=== PATIENT | female | born 1975 | race Caucasian/White ===

== ENCOUNTER 2019-07-10 00:12 | Emergency (ER) | payer BC ==
--- NOTE | 2019-07-10 00:31 | ER Document Report ---
ED General - General Chief Complaint: Altered Mental Status Stated Complaint: BEHAVIORAL PROBLEM/ETOH Time Seen by Provider: 07/10/19 00:23 Notes: Patient is a 44-year-old female that comes the emergency department by EMS for chief complaint of bizarre behavior. Reportedly patient was pounding on neighbors door, smelled of alcohol, and was yelling nonsensical statements while appearing intoxicated. EMS also reported that it upon arrival and transport to the emergency department patient began swinging at EMS staff, biting at them, spitting at them. Patient as result was given 250 mg IM ketamine. EMS states that police on scene reported they were very familiar with the patient and that she is almost always intoxicated. Afterwards patient became extremely sedated, oxygen saturation dropped to 85% on room air, NPA was placed, patient has had normal respiratory effort and normal oxygenation since then but has remained sedated. Patient does not have any home medications listed. They also report surgical history of breast augmentation but no other surgical history. History was limited. TRAVEL OUTSIDE OF THE [place] IN LAST 30 DAYS: No - Related Data Allergies/Adverse Reactions: No Known Allergies Allergy (Verified 09/12/14 13:23) Past Medical History - General Information source: Emergency Med Personnel - Social History Smoking Status: Unknown if Ever Smoked Frequency of alcohol use: Heavy Lives with: Alone Family History: None Patient has suicidal ideation: No Patient has homicidal ideation: No Renal/ Medical History: Denies: Hx Peritoneal Dialysis Past Surgical History: Reports: Hx Breast Surgery - augmentation x 15years Review of Systems - Review of Systems Constitutional: See HPI EENT: No symptoms reported Cardiovascular: No symptoms reported Respiratory: See HPI Gastrointestinal: No symptoms reported Genitourinary: No symptoms reported Female Genitourinary: No symptoms reported Musculoskeletal: No symptoms reported Skin: No symptoms reported Hematologic/Lymphatic: No symptoms reported Neurological/Psychological: See HPI Physical Exam - Vital signs Vitals: Pulse Ox 98 07/10/19 00:14 - Notes Notes: GENERAL: Patient sedated, sleeping soundly HEAD: Normocephalic, atraumatic. EYES: Pupils equal, round, and reactive to light. Extraocular movements intact. ENT: Oral mucosa moist, tongue midline. Oropharynx unremarkable. Airway patent. NPA in place in the right nostril without bleeding. LUNGS: Clear to auscultation bilaterally, no wheezes, rales, or rhonchi. Respirations are repressed or labored no respiratory distress. No trauma noted to the chest wall. HEART: Regular rate and rhythm. No murmur ABDOMEN: Soft, non-tender. Non-distended. No signs of trauma. GENITOURINARY: No signs of trauma. PCT Chery at bedside assisting exam. EXTREMITIES: No signs of trauma. No edema, normal radial and dorsalis pedis pulses bilaterally. No cyanosis. BACK: no cervical, thoracic, lumbar midline tenderness. No signs of trauma. NEUROLOGICAL: Sedated with nystagmus noted. Incomplete exam because of this. SKIN: Warm, dry, normal turgor. No rashes or lesions noted. Course - Re-evaluation Re-evalutation: Recent medications including fluoxetine, alprazolam, and ADHD medications noted. Patient is unable to answer questions and is currently completely sedated with NPA. She has reactive pupils, no signs of trauma, clear lungs, she is not tachycardic, she is not hypoxic, she has good respiratory effort. Work-up pending, patient will be kept on cardiac monitoring and closely reevaluated. 07/10/19 01:25 Patient is much more arousable now, she pulled out her NPA, there is no bleeding, patient fell back asleep. 07/10/19 02:30 Patient is awake, mumbling, still drowsy, appears to still be under the effects of the ketamine and alcohol. Vital signs unremarkable, will continue to monitor. She has been given IV fluids. CBC, chemistry, urinalysis nonspecific. Alcohol greater than 200. Urine drug screen shows benzodiazepine, patient is prescribed alprazolam per her records. Patient is much more awake. She is asking where she is and what happened. I did explain this. Patient tried to get out of bed, she is unsteady on her feet, she still is slurring her words, patient was helped back into the bed. I did discuss details with patient. Patient was given Phenergan for nausea and to help her rest and sober up. Patient fell back asleep. She remains arousable and is maintaining her airway. Patient will be monitored until she is clinically sober and cooperative, then disposition will be based on this interaction. - Vital Signs Vital signs: Temp Pulse Resp BP Pulse Ox 98.3 F 90 13 97/62 L 100 07/10/19 13:40 07/10/19 03:21 07/10/19 13:01 07/10/19 13:37 07/10/19 13:37 - Laboratory Result Diagrams: 07/10/19 00:31 07/10/19 00:31 Laboratory results interpreted by me: 07/10/19 07/10/19 00:31 00:31 MCV 99 H MCH 34.4 H Eos % (Auto) 9.2 H Absolute Eos (auto) 0.8 H AST 37 H Salicylates < 1.0 L Acetaminophen < 10 L - EKG Interpretation by Me Additional EKG results interpreted by me: EKG shows sinus rhythm at a rate of 94, first-degree AV block with IL interval of 224, QTC of 456, normal axis, no T wave inversions or ST segment changes in consecutive leads. Discharge - Discharge Clinical Impression: Aggressive behavior Alcohol intoxication Qualifiers: Complication of substance-induced condition: with unspecified complication Qualified Code(s): F10.929 - Alcohol use, unspecified with intoxication, unspecified Condition: Stable Disposition: HOME, SELF-CARE Additional Instructions: Avoid drinking alcohol to intoxication. Follow-up with the detox center listed below. Return to the emergency department for any concerning developing symptoms or if something is not right. Forms: Return to Work
[2019-07-10 00:50] LABS: ABSOLUTE BASOPHILS # (AUTO) 0.1 10^3/uL (0.0-0.2); ABSOLUTE EOSINOPHILS # (AUTO) 0.8 10^3/uL (0.0-0.6); ABSOLUTE LYMPHOCYTES (AUTO) 2.7 10^3/uL (0.5-4.7); ABSOLUTE MONOCYTES (AUTO) 0.7 10^3/uL (0.1-1.4); ABSOLUTE NEUT (AUTO) 4.9 10^3/uL (1.7-8.2); BASOPHILS % (AUTO) 0.7 % (0-2); EOSINOPHILS % (AUTO) 9.2 % (0-6); HEMATOCRIT 42.5 % (36.0-47.0); HEMOGLOBIN 14.9 g/dL (12.0-15.5); LYMPHOCYTES % (AUTO) 29.2 % (13-45); MEAN CORPUSCULAR HEMOGLOBIN 34.4 pg (27.0-33.4); MEAN CORPUSCULAR VOLUME 99 fl (80-97); MONOCYTES % (AUTO) 7.8 % (3-13); PLATELET COUNT 318 10^3/uL (150-450); RED BLOOD COUNT 4.32 10^6/uL (3.72-5.28); RED CELL DISTRIBUTION WIDTH 12.7 % (11.5-14.0); SEGMENTED NEUTROPHILS % (AUTO) 53.1 % (42-78); TOTAL CELLS COUNTED % (AUTO) 100 %; WHITE BLOOD COUNT 9.2 10^3/uL (4.0-10.5)
[2019-07-10] MEDS ORDERED: NORMAL SALINE 1000 ML 1,000 ML IV ONE (00:52)
[2019-07-10 00:59] LABS: APPEARANCE,URINE CLEAR; BILIRUBIN,URINE NEGATIVE (NEGATIVE); COLOR,URINE COLORLESS; GLUCOSE, URINE NEGATIVE (NEGATIVE); KETONES,URINE NEGATIVE (NEGATIVE); LEUKOCYTE ESTERASE,URINE NEGATIVE (NEGATIVE); NITRITE,URINE NEGATIVE (NEGATIVE); PROTEIN,URINE NEGATIVE (NEGATIVE); URINE SPECIFIC GRAVITY 1.003; UROBILINOGEN,URINE NEGATIVE mg/dL (<2.0)
[2019-07-10 01:01] LABS: ALBUMIN 4.6 g/dL (3.5-5.0); ALCOHOL 225 mg/dL (NONE DETECTED); ALKALINE PHOSPHATASE 47 U/L (38-126); ANION GAP 5 (5-19); ASPARTATE AMINO TRANSFERASE 37 U/L (14-36); BILIRUBIN,TOTAL 0.4 mg/dL (0.2-1.3); BLOOD UREA NITROGEN 8 mg/dL (7-20); CARBON DIOXIDE 30 mmol/L (22-30); CHLORIDE 106 mmol/L (98-107); GLUCOSE 94 mg/dL (75-110); TOTAL PROTEIN 7.3 g/dL (6.3-8.2)
[2019-07-10 01:05] LABS: ACETAMINOPHEN < 10 ug/mL (10-30); SALICYLATE < 1.0 mg/dL (2.0-20.0)
[2019-07-10 01:10] LABS: URINE AMPHETAMINES SCREEN NEGATIVE; URINE BARBITURATES SCREEN NEGATIVE; URINE COCAINE SCREEN NEGATIVE; URINE MARIJUANA (THC) SCREEN NEGATIVE; URINE METHADONE SCREEN NEGATIVE; URINE PHENCYCLIDINE SCREEN NEGATIVE
[2019-07-10 01:11] LABS: URINE BENZODIAZEPINES SCREEN UNCONFIRMED POSITIVE
--- NOTE | 2019-07-10 01:34 | RADIOLOGY REPORT (SQ) ---
EXAM DESCRIPTION: XR CHEST 1 VIEW COMPLETED DATE/TME: 07/10/2019 00:29 CLINICAL HISTORY: 44 years, Female, hypoxia COMPARISON: None. NUMBER OF VIEWS: 1 TECHNIQUE: Portable chest LIMITATIONS: None. FINDINGS: The heart size is normal. Lungs are clear. No pneumothorax IMPRESSION: Negative chest copyright 2011 [employer]- All Rights Reserved
[2019-07-10] MEDS ORDERED: PROMETHAZINE HCL INJ 25 MG/1 ML VIAL IM ONE (03:19)
--- NOTE | 2019-07-10 07:13 | EKG REPORT ---
SEVERITY:- ABNORMAL ECG - SINUS RHYTHM FIRST DEGREE AV BLOCK : Confirmed by: Mitch Cardozo MD 10-Jul-2019 07:11:52
[2019-07-10 13:44] VITALS: BP 97/62
== END 2019-07-10 13:51 | disposition home or self-care (01) ==
LOC: ER 00:12
DX: F10.129 Alcohol abuse with intoxication, unspecified (principal); R45.6 Violent behavior; R11.0 Nausea; I44.0 Atrioventricular block, first degree
CPT/HCPCS: 93005; 99285; 96372; 96360; 36415; 80307 ×4; 84703; 85025; 80053; 81001; 71045; 93010; J2550; J7030

== ENCOUNTER 2019-07-24 13:08 | Emergency (ER) | payer BC ==
[2019-07-24 13:46] LABS: ABSOLUTE BASOPHILS # (AUTO) 0.1 10^3/uL (0.0-0.2); ABSOLUTE EOSINOPHILS # (AUTO) 0.2 10^3/uL (0.0-0.6); ABSOLUTE LYMPHOCYTES (AUTO) 1.6 10^3/uL (0.5-4.7); ABSOLUTE MONOCYTES (AUTO) 0.6 10^3/uL (0.1-1.4); ABSOLUTE NEUT (AUTO) 5.4 10^3/uL (1.7-8.2); BASOPHILS % (AUTO) 0.8 % (0-2); EOSINOPHILS % (AUTO) 2.2 % (0-6); HEMATOCRIT 42.2 % (36.0-47.0); HEMOGLOBIN 15.1 g/dL (12.0-15.5); LYMPHOCYTES % (AUTO) 20.7 % (13-45); MEAN CORPUSCULAR HEMOGLOBIN 34.7 pg (27.0-33.4); MEAN CORPUSCULAR HGB CONC 35.7 g/dL (32.0-36.0); MEAN CORPUSCULAR VOLUME 97 fl (80-97); MONOCYTES % (AUTO) 7.9 % (3-13); PLATELET COUNT 340 10^3/uL (150-450); RED BLOOD COUNT 4.34 10^6/uL (3.72-5.28); RED CELL DISTRIBUTION WIDTH 12.8 % (11.5-14.0); SEGMENTED NEUTROPHILS % (AUTO) 68.4 % (42-78); TOTAL CELLS COUNTED % (AUTO) 100 %
[2019-07-24 14:05] LABS: ALBUMIN 5.3 g/dL (3.5-5.0); ALKALINE PHOSPHATASE 66 U/L (38-126); ANION GAP 12 (5-19); ASPARTATE AMINO TRANSFERASE 44 U/L (14-36); BILIRUBIN,TOTAL 0.9 mg/dL (0.2-1.3); BLOOD UREA NITROGEN 18 mg/dL (7-20); CALCIUM 9.8 mg/dL (8.4-10.2); CARBON DIOXIDE 25 mmol/L (22-30); CHLORIDE 100 mmol/L (98-107); GLUCOSE 103 mg/dL (75-110); POTASSIUM 3.7 mmol/L (3.6-5.0)
[2019-07-24 14:10] LABS: ACETAMINOPHEN < 10 ug/mL (10-30); ALCOHOL < 10 mg/dL (NONE DETECTED); SALICYLATE < 1.0 mg/dL (2.0-20.0)
[2019-07-24] MEDS ORDERED: CHLORPROMAZINE HCL 50 MG TABLET PO ONE (15:05)
--- NOTE | 2019-07-24 15:38 | ER Document Report ---
ED Psych Disorder / Suicide - General Mode of Arrival: Ambulatory TRAVEL OUTSIDE OF THE [place] IN LAST 30 DAYS: No - HPI Patient complains to provider of: No: Homicidal ideation, Suicidal ideation, Suicidal attempt Onset: Other - 3 days Suicide Risk Factors: Depressed. No: Substance abuse Situational problems related to: Other - Single parent Associated symptoms: Anxious, Visual hallucinations - Denies although reports seeing worms in her lip Similar symptoms previously: No Recently seen / treated by doctor: No <JUANJO VEGA - Last Filed: 07/24/19 17:14> <CHANA SANTACRUZ - Last Filed: 07/24/19 23:51> - General Chief Complaint: Psych Problem Stated Complaint: PSYCH EVAL Time Seen by Provider: 07/24/19 13:33 Notes: Patient presents complaining of rash to bilateral hands. 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 Patient is also concerned that she has a worm under the skin of her lip. Patient states that she felt something move and she had some swelling to the lip so she took a needle and was poking holes in her lip and attempt to relieve the pressure. Patient states that she does have a history of ADHD, depression and panic attacks. Patient reports that her dose of her antidepressant was recently increased. Patient states that she is concerned that she has parasites in her skin. Patient denies any suicidal or homicidal ideation. (JUANJO VEGA) - Related Data Allergies/Adverse Reactions: No Known Allergies Allergy (Verified 09/12/14 13:23) Past Medical History - General Information source: Patient - Social History Smoking Status: Current Every Day Smoker Frequency of alcohol use: Heavy Drug Abuse: None Lives with: Family Family History: None Patient has homicidal ideation: No Renal/ Medical History: Denies: Hx Peritoneal Dialysis Psychiatric Medical History: Reports: Hx Anxiety, Hx Attention Deficit Hyperactivity Disorder, Hx Depression Past Surgical History: Reports: Hx Breast Surgery - augmentation x 15years <JUANJO VEGA - Last Filed: 07/24/19 17:14> Review of Systems - Review of Systems Constitutional: No symptoms reported EENT: No symptoms reported Cardiovascular: No symptoms reported Respiratory: No symptoms reported. denies: Cough Gastrointestinal: No symptoms reported Genitourinary: No symptoms reported Female Genitourinary: No symptoms reported Musculoskeletal: No symptoms reported Skin: Other - Cracking to the skin of the hands Hematologic/Lymphatic: No symptoms reported Neurological/Psychological: Anxiety. denies: Homicidal ideation, Suicidal ideation <JUANJO VEGA - Last Filed: 07/24/19 17:14> Physical Exam - General General appearance: Appears well, Alert, Anxious In distress: None - HEENT Head: Normocephalic Eyes: Normal Conjunctiva: Normal Nasal: Normal Mouth/Lips: Other - swelling to lateral aspect of lower lip, open wound noted to portion of the lower lip Mucous membranes: Normal Neck: Normal, Supple. No: Lymphadenopathy - Respiratory Respiratory status: No respiratory distress Chest status: Nontender Breath sounds: Normal Chest palpation: Normal - Cardiovascular Rhythm: Regular Heart sounds: S1 appreciated, S2 appreciated Murmur: No - Back Back: Normal, Nontender. No: CVA tenderness - Extremities General upper extremity: Normal inspection, Normal ROM General lower extremity: Normal inspection, Normal ROM - Neurological Neuro grossly intact: Yes Cognition: Normal Julia Coma Scale Eye Opening: Spontaneous [place] Coma Scale Verbal: Oriented Julia Coma Scale Motor: Obeys Commands [place] Coma Scale Total: 15 - Psychological Associated symptoms: Anxious, Psychomotor agitation - Skin Skin Temperature: Warm Skin Moisture: Dry Skin Color: Normal Skin irregularity: other - Tender cracking and fissuring noted to the palmar surface of the hands and around nail margins bilaterally <KATIACELESTECAMERON - Last Filed: 07/24/19 17:14> - Vital signs Vitals: Temp 97.3 F 07/24/19 13:58 Course - Laboratory Result Diagrams: 07/24/19 13:30 07/24/19 13:30 <JUANJO VEGA - Last Filed: 07/24/19 17:14> - Laboratory Result Diagrams: 07/24/19 13:30 07/24/19 13:30 <CHANA SANTACRUZ - Last Filed: 07/24/19 23:51> - Re-evaluation Re-evalutation: 07/24/19 15:40 Patient anxious with increased psychomotor agitation. Patient reports seen parasites under the surface of her skin and traumatizing her lip trying to manage this condition. Patient denies having any visual hallucinations or auditory hallucinations. Patient states she has been compliant with taking her medications as prescribed. Mental health team would like patient on a 24-hour hold to stabilize on medications at this time. Mental health team advises discontinuing patient's home Adderall, Xanax and Prozac and giving her Thorazine 50 mg orally or intramuscularly every 6 hours as needed. 07/24/19 17:14 Report and handoff given to Shaye Santacruz NP (JUANJO VEGA) 07/24/19 16:49 report received from Juanjo Vega TELEVISION SERVICER. Patient resting calmly 07/24/19 20:21 Patient sleeping calmly, no distress noted. 07/24/19 23:49 Patient has been sleeping calmly. No complaints. Report given to Beth Carlisle. (CHANA SANTACRUZ) - Vital Signs Vital signs: Temp Pulse Resp BP Pulse Ox 98.3 F 95 16 102/60 100 07/24/19 21:06 07/24/19 21:06 07/24/19 21:06 07/24/19 21:06 07/24/19 21:06 - Laboratory Laboratory results interpreted by me: 07/24/19 07/24/19 07/24/19 13:30 13:30 16:37 MCH 34.7 H Sodium 136.6 L AST 44 H Albumin 5.3 H Urine Protein 30 H Urine Ketones 80 H Urine Blood MODERATE H Salicylates < 1.0 L Acetaminophen < 10 L Discharge <JUANJO VEGA - Last Filed: 07/24/19 17:14> <CHANA SANTACRUZ - Last Filed: 07/24/19 23:51> - Discharge Clinical Impression: Visual hallucinations Condition: Stable Disposition: PSYCH HOSP/UNIT
--- NOTE | 2019-07-24 16:16 | PSYCHOLOGICAL NOTE ---
Psych Note - Psych Note Date seen by psych provider: 07/24/19 Time seen by psych provider: 13:45 Psych Note: Patient is a 44 year old female who presents to ED via EMS with concerns for pinworms. Patient has a history of substance abuse to include ETOH and prescription amphetamine. 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 Patient reports mental health diagnosis of ADHD and depression. Patient reports a history of panic attacks in which she is prescribed Xanax that she does not take frequently. Tina Rainey prescribes Adderral XR 30MG, daily, which was filled on 07/17/2019. Dr. Olivo prescribes Prozac 10MG, daily and Xananx .5MG, twice a day PRN. Patient denies a history of inpatient psychiatric hospitalizations. Patient denies substance abuse history. Patient reports recent ETOH and THC use. Patient denies current mental health concerns. The following information was collected from [facility] [phone]. Dating since February. Patient has been digging in her lip to the point it bled. Months about parasites, which she has been prescribed medications by her PCM. Boyfriend reports he saw something come out of her lip that resembles a worm, and was placed in a baggie and given to EMS. Patient drank a lot of wine and took her medications. Patient's mood is described as "up and down." Patient has joked about "jumping off a bridge." Under stress as a single mom. Concerns for medications. Xanax 2 weeks ago. Drinks ETOH and misuses Xanax and Addreall. Ceased medications use and was "just fine." Patient has reported an addiction to Addreall and is described as "paranoid" when she takes too much. Patient became agitated (screaming and yelling) when confronted about ETOH use with prescription (Addreall and Xanax) misuse. Patient was informed of 24HR petition for evaluation. Patient verbalized a belief that she does not need to remain in ED overnight. Clinician discussed concerns for ETOH use with prescription (Addreall and Xanax) misuse. Patient was non receptive. Clinician notes limited insight and judgment into her circumstances. Patient's UDS is positive for methamphetamine. Patient was alert and oriented to person, place, circumstance, and situation. Mood was anxious and cooperative with congruent affect. Patient denied suicidal / homicidal ideation, intent or plan or a history of the same. Patient denied current auditory /visual hallucinations, however patient reports parasites in her body. Clinician notes psychomotor agitation. Clinician notes patient is experiencing formication. Conversational speech was pressured. Eye contact was well maintained. Intellectual abilities were estimated within the average range. Attention and concentration was good, and insight, judgment, and impulse control was fair to poor. Medication recommendation by consulting psychiatrist: 1. Discontinue home medication of Prozac 2. Discontinue home medication of Xanax 3. Discontinue home medication of Addreall 4. Add Thorazine 50MG, Q6 PRN Diagnosis: 1. Amphetamine Intoxication Therapeutic Intervention: Impression / Plan: Patient is recommended for 24HR petition for evaluation. Medication recommendations have been provided. Patient presents to ED via EMS with concerns for pinworms in her body. Patient has a history of prescription medication and ETOH abuse. Patient is acting on formication delusions by digging in her lip, demonstrating pressured speech, demonstrating psychomotor agitation, and has limited insight and judgment regarding her abuse/misuse of Addreall, Xanax, and ETOH. Patient is under the influence of methamphetamine. Patient will be reevaluated. Dr. Rainey was consulted on the care and management of this patient; attending physician is in agreement with recommendations and disposition.
[2019-07-24 16:59] LABS: APPEARANCE,URINE SLIGHTLY-CLOUDY; BILIRUBIN,URINE NEGATIVE (NEGATIVE); COLOR,URINE YELLOW; GLUCOSE, URINE NEGATIVE (NEGATIVE); KETONES,URINE 80 mg/dL (NEGATIVE); LEUKOCYTE ESTERASE,URINE NEGATIVE (NEGATIVE); NITRITE,URINE NEGATIVE (NEGATIVE); PROTEIN,URINE 30 mg/dL (NEGATIVE); URINE SPECIFIC GRAVITY 1.031; UROBILINOGEN,URINE NEGATIVE mg/dL (<2.0)
[2019-07-24 17:10] LABS: URINE BARBITURATES SCREEN NEGATIVE; URINE BENZODIAZEPINES SCREEN NEGATIVE; URINE COCAINE SCREEN NEGATIVE; URINE MARIJUANA (THC) SCREEN NEGATIVE; URINE METHADONE SCREEN NEGATIVE; URINE PHENCYCLIDINE SCREEN NEGATIVE
--- NOTE | 2019-07-24 18:19 | EKG REPORT ---
SEVERITY:- OTHERWISE NORMAL ECG - SINUS TACHYCARDIA : Confirmed by: Tami Reddy MD 24-Jul-2019 18:18:47
--- NOTE | 2019-07-25 06:36 | ER Document Report ---
Doctor's Note Notes: 07/25/19 06:35 Patient's resting no acute distress noted. Sitter at bedside.
[2019-07-25 08:16] VITALS: BP 122/82
--- NOTE | 2019-07-25 09:48 | ER Document Report ---
Doctor's Note Notes: 07/25/19 09:48 Patient sleeping at this time, awaiting mental health reevaluation today. 07/25/19 13:00 PHYSICAL EXAMINATION: GENERAL: Well-appearing and in no acute distress. HEAD: Atraumatic, normocephalic. EYES: sclera anicteric, conjunctiva are normal. ENT: nares patent. Moist mucous membranes. Mild swelling to the lower lip, no surrounding erythema NECK: Normal range of motion, supple without lymphadenopathy LUNGS: CTAB and equal. No wheezes rales or rhonchi. HEART: Regular rate and rhythm without murmurs EXTREMITIES: Normal range of motion, no pitting edema. No cyanosis. NEUROLOGICAL: Cranial nerves grossly intact. Normal speech. Normal gait. PSYCH: Normal mood, normal affect. SKIN: Warm, Dry, normal turgor, mild cracking and fissures noted to hands around the nail margins 07/25/19 13:01 Mental health team reevaluated patient, patient does not meet IVC criteria. Patient denies any suicidal homicidal ideation. Patient will be encouraged to follow-up with her primary doctor for further management.
--- NOTE | 2019-07-30 17:50 | PSYCHOLOGICAL NOTE ---
Psych Note - Psych Note Date seen by psych provider: 07/25/19 Time seen by psych provider: 12:50 Psych Note: Reason for Consult: Hallucinations Patient is a 44 year old female who presents to ED via EMS with concerns for pinworms. Patient has a history of substance abuse to include ETOH and prescription amphetamine. Check in conducted with patient: Patient is calmly sitting in bed and engaged with clinician appropriately. She denies experiencing current concerns in regards to any possible visual or tactile hallucinations. Patient discloses that she has an open sore on her lip and was provided medications for it. She also identified spending a significant amount of time in the ocean which she believes contributed to her belief that she had pinworms. Patient is resistant and will not discuss substance abuse or misuse. She is very adamant that she does not use illegal substances or misuses her prescriptions. She denies any thoughts of wanting to harm herself or others. Patient is not demonstrating any behaviors of responding to internal stimuli i.e. maintains good eye contact, normal conversational speech, organized linear thought processes. Medication recommendation by consulting psychiatrist: Discontinue home medication of Prozac Discontinue home medication of Xanax Discontinue home medication of Addreall Continue Thorazine 50MG, Q6 PRN Diagnosis: Amphetamine Intoxication Impression / Plan: Patient is recommended for rescind of 24 hour petition for evaluation and is cleared from acute psychiatric services. Paperwork is signed and placed in patient's chart. Patient has a history of prescription medication and ETOH abuse. She arrived to [facility] under the influence of probable methamphetamine. She is currently able to engage in organized and linear conversation. She denies visual/tactile hallucination and is not demonstrating and behaviours indicating she is responding to internal stimuli. She is resistance to discussing her substance abuse/prescription misuse. She is provided psychoeducation and resource information; however, patient is reluctant and there is a poor probability of her following through with substance abuse treatment. At this time, she does not meet IVC criteria for treatment. She is encouraged to follow through with voluntary treatment. Dr. Rainey was consulted on the care and management of this patient; attending physician is in agreement with recommendations and disposition.
== END 2019-07-25 13:41 | disposition home or self-care (01) ==
LOC: ER 13:08
DX: R44.1 Visual hallucinations (principal); S01.531A Puncture wound without foreign body of lip, initial encounter; W26.8XXA Contact with other sharp object(s), not elsewhere classified, initial encounter; Y93.89 Activity, other specified; R23.4 Changes in skin texture; F41.9 Anxiety disorder, unspecified; F32.9 Major depressive disorder, single episode, unspecified; F90.9 Attention-deficit hyperactivity disorder, unspecified type; Z79.899 Other long term (current) drug therapy; F17.200 Nicotine dependence, unspecified, uncomplicated
CPT/HCPCS: 93005; 99285; 36415; 80307 ×4; 84703; 85025; 80053; 81001; 93010; J3490

== ENCOUNTER → 2019-10-06 | Outpatient (CLI) | payer BC ==
--- NOTE | 2019-10-06 13:52 | RADIOLOGY REPORT (SQ) ---
EXAM DESCRIPTION: CT HEAD WITHOUT IMAGES COMPLETED DATE/TIME: 10/06/2019 1:04 pm REASON FOR STUDY: (S09.90XA)UNSPECIFIED INJURY OF HEAD, INITIAL ENCOUNTER S09.90XA UNSPECIFIED INJU RY OF HEAD, INITIAL ENCOUNTER COMPARISON: 10/25/2018 TECHNIQUE: Axial images acquired through the brain without intravenous contrast. Images reviewed wi th bone, brain and subdural windows. Additional sagittal and coronal reconstructions were generated. Images stored on PACS. All CT scanners at this facility use dose modulation, iterative reconstruction, and/or weight based d osing when appropriate to reduce radiation dose to as low as reasonably achievable (ALARA). [facility]: Dose Right [facility]: CareDose [facility]: Dose Right [facility]: Teradose 4D [facility]: Embrane RADIATION DOSE: CT Rad equipment meets quality standard of care and radiation dose reduction techniq ues were employed. CTDIvol: 48.6 mGy. DLP: 954 mGy-cm. mGy. LIMITATIONS: None. FINDINGS: VENTRICLES: Normal size and contour. CEREBRUM: No masses. No hemorrhage. No midline shift. No evidence for acute infarction. Normal gra y/white matter differentiation. No areas of low density in the white matter. CEREBELLUM: No masses. No hemorrhage. No alteration of density. No evidence for acute infarction. EXTRAAXIAL SPACES: No fluid collections. No masses. ORBITS AND GLOBE: No intra- or extraconal masses. Normal contour of globe without masses. CALVARIUM: No fracture. PARANASAL SINUSES: Mild mucosal thickening in the left maxillary sinus. SOFT TISSUES: No mass or hematoma. OTHER: No other significant finding. IMPRESSION: NORMAL BRAIN CT WITHOUT CONTRAST. EVIDENCE OF ACUTE STROKE: NO. COMMENT: Quality ID # [id number]: Final reports with documentation of one or more dose reduction techniques (e.g., Automated exposure control, adjustment of the mA and/or kV according to patient size, use of iterative reconstruction technique) TECHNICAL DOCUMENTATION: JOB ID: [id number] 2010 [employer]- All Rights Reserved Reading location - IP/workstation name: [email or web address]
== END ==
LOC: RAD 12:51
PROVIDERS: ATTEND Nurse Practitioner Family
DX: S09.90XA Unspecified injury of head, initial encounter (principal); X58.XXXA Exposure to other specified factors, initial encounter
CPT/HCPCS: 70450